=== PATIENT | male | born 1975 | race Hispanic/Latino ===

== ENCOUNTER → 2020-08-24 | Day surgery (SDC) | payer OTHER ==
[~2020-08-24] MED LIST: ACETAMINOPHEN 1000 MG/100 ML 100 ML IV ONE; CEFAZOLIN SOD 1 GM/NS 50ML 100 ML IV ONE; DEXAMETHASONE SOD PHOS 10 MG/1 ML VIAL ONE; DEXAMETHASONE SOD PHOS INJ 4 MG/ML VIAL ONE; EPINEPHRINE 1 MG/ML 30ML VIAL ONE; EPINEPHRINE HCL 1:1000 1ML 1 MG/ML AMP ONE; FENTANYL CITRATE/PF 100MCG/2 ML INJ ONE; GLYCOPYRROLATE INJ 0.2 MG/ML VIAL ONE; KETOROLAC TROMETHAMINE 30 MG/ML VIAL ONE; LIDOCAINE 2%/ EPINEPHRINE 20ML MDV ONE; LIDOCAINE HCL 2% LOCAL INJ 5 ML SDV VIAL INJ ONE; MIDAZOLAM HCL 2 MG/2 ML VIAL ONE; NEOSTIGMINE 1 MG/ML 10ML VIAL ONE; ONDANSETRON HCL INJ 2MG/ML 2ML 2 MG/ML VIAL ONE; PROPOFOL IV EMULSION 10 MG/ML 20 ML VIAL ONE; ROCURONIUM BROMIDE 10 MG/ML 5ML VIAL IV ONE; ROPIVACAINE 0.5% 5 MG/ML 30 ML SDV ONE; SEVOFLURANE INHAL SOLN 250 ML PEN BTL ONE
[2020-08-24 11:15] VITALS: BP 152/92
== END | disposition home or self-care (01) ==
LOC: OR 05:21
PROVIDERS: ATTEND Specialist
DX: S43.431A Superior glenoid labrum lesion of right shoulder, initial encounter (principal); M75.51 Bursitis of right shoulder; S46.101A Unspecified injury of muscle, fascia and tendon of long head of biceps, right arm, initial encounter; M75.111 Incomplete rotator cuff tear or rupture of right shoulder, not specified as traumatic; X50.0XXA Overexertion from strenuous movement or load, initial encounter; Y93.89 Activity, other specified; Y92.89 Other specified places as the place of occurrence of the external cause; Y99.0 Civilian activity done for income or pay; Z01.810 Encounter for preprocedural cardiovascular examination; Z01.812 Encounter for preprocedural laboratory examination; Z20.822 Contact with and (suspected) exposure to COVID-19
CPT/HCPCS: 93005; J0171; J0690; J1100; J1885; J2001; J2250; J2405; J2710; J2795; J3010; U0002